=== PATIENT | male | born 1945 | race African-American/Black ===

== ENCOUNTER 2020-11-22 10:05 | Emergency (ER) | payer OTHER ==
[~2020-11-22] VITALS: Ht 162.6 cm; Wt 115.4 kg
--- NOTE | 2020-11-22 10:31 | NUR ---
INTINAL CONTACT: PT W/ C/O Hx of dementia and parkinsons. 2 weeks ago reported MGLF and this AM. Pt of neurologist. DR. ROSENBERG TO BEDSIDE TO FOR EVALUATION. PT ATTACHED TO MONITORS. VSS. HAYS. POSTIONED TO COMFORT IN BED. AT BEDSIDE.
--- NOTE | 2020-11-22 10:35 | NUR ---
PER PT OF DR. ANGIE MEDEROS AT [facility] IN [place].
--- NOTE | 2020-11-22 10:37 | NUR ---
NIYAH ROSENBERG NUROLOGIST Addendum: 11/22/20 at 1038 by [email or web address] [phone] NIYAH CARABALLO
[2020-11-22 11:08] LABS: BASOPHILS % (AUTO) 0 % (0-1); EOSINOPHILS % (AUTO) 2 % (1-7); LYMPHOCYTES % (AUTO) 24 % (22-44); MEAN CORPUSCULAR HGB CONC 33.6 g/dL (33.2-36.2); MEAN PLATELET VOLUME 8.2 fL (7.4-10.4); MONOCYTES % (AUTO) 10 % (2-9); NEUTROPHILS % (AUTO) 63 % (42-75); PLATELET COUNT 210 x10^3/uL (130-400); RED BLOOD COUNT 4.01 x10^6/uL (4.38-5.82); RED CELL DISTRIBUTION WIDTH 14.2 % (9.4-14.8)
[2020-11-22 11:20] LABS: ALBUMIN 3.2 g/dL (3.4-5.0); ANION GAP 6 mmol/L (5-15); CHLORIDE 108 mmol/L (98-107)
[2020-11-22 11:23] LABS: ALANINE AMINOTRANSFERASE 14 U/L (12-78); ALKALINE PHOSPHATASE 49 U/L (45-117); BILIRUBIN,TOTAL 0.4 mg/dL (0.2-1.0); CREATININE 1.14 mg/dL (0.7-1.3); TOTAL PROTEIN 7.4 g/dL (6.4-8.2)
--- NOTE | 2020-11-22 12:10 | NUR ---
PT ASLEEP WITH EVEN AND UNLABORED RESPIRATIONS. VSS. HAYS. AT BEDSIDE.
[2020-11-22 13:39] VITALS: BP 134/76
--- NOTE | 2020-11-22 13:39 | NUR ---
PT BACK FROM BED WITH STEADY GAIT FROM BATHROOM. VSS. NADN. PASS ROAD TEST
--- NOTE | 2020-11-22 14:08 | NUR ---
Patient given discharge instructions and they have confirmed that they understand the instructions. Patient ambulatory with steady gait. NAD, all questions answered appropriately, denies additional needs at this time. No personal belongings left in room after discharge.
== END 2020-11-22 14:09 | disposition home or self-care (01) ==
LOC: ED 14:00
DX: H81.399 Other peripheral vertigo, unspecified ear (principal); R07.9 Chest pain, unspecified; R94.31 Abnormal electrocardiogram [ECG] [EKG]
CPT/HCPCS: 36415; 71045; 80053; 85025; 93005; 99283